=== PATIENT | female | born 1980 | race Two or more races ===

== ENCOUNTER 2022-02-06 18:13 | Inpatient (IN) | payer MEDICAID ==
[~2022-02-06] VITALS: Ht 154.9 cm; Wt 84.8 kg
--- NOTE | 2022-02-06 18:37 | NUR ---
PT IS IN ROOM #2B. DR OWENS EVALUATED THE PT.
[2022-02-06] MEDS ORDERED: ASPI81TA31 PO (18:57)
[2022-02-06] MEDS ORDERED: [UNRECOGNIZED DRUG - OTHER] (18:57)
[2022-02-06] MEDS ORDERED: LEVO25TA9 PO (18:57)
[2022-02-06] MEDS ORDERED: ACET160E36 PO (18:57)
[2022-02-06] MEDS ORDERED: ALBU18HF2 INH (18:57)
[2022-02-06] MEDS ORDERED: [UNRECOGNIZED DRUG - OTHER] PO (18:57)
[2022-02-06] MEDS ORDERED: HYDROCORTISONE CR TP (18:57)
[2022-02-06] MEDS ORDERED: LOSA25TA27 PO (18:57)
[2022-02-06] MEDS ORDERED: HUM10VIA SQ (18:57)
[2022-02-06] MEDS ORDERED: SILD50TA PO (18:57)
[2022-02-06] MEDS ORDERED: SELE1TAB PO (18:57)
[2022-02-06] MEDS ORDERED: LORA10TA7 PO (18:57)
[2022-02-06] MEDS ORDERED: BUME1TAB8 PO (18:57)
[2022-02-06] MEDS ORDERED: ACET-2154 PO (18:57)
[2022-02-06] MEDS ORDERED: EMTR1TAB13 PO (18:57)
[2022-02-06] MEDS ORDERED: TRAM50TA2 PO (18:57)
[2022-02-06] MEDS ORDERED: BUDE10.22 INH (18:57)
[2022-02-06] MEDS ORDERED: MACI10TA PO (18:57)
[2022-02-06] MEDS ORDERED: DOLU50TA PO (18:57)
[2022-02-06] MEDS ORDERED: VANCOMYCIN 1G/D5W 200 ML PIGGYBACK IV ONE (19:15)
[2022-02-06] MEDS ORDERED: HYDROMORPHONE 1 MG/1 ML DISP.SYRIN IV ONE (19:15)
[2022-02-06 19:42] LABS: HEMATOCRIT 44.7 % (31.2-41.9); MEAN CORPUSCULAR HEMOGLOBIN 28.7 uug (24.7-32.8); MEAN CORPUSCULAR VOLUME 86.4 fL (75.5-95.3); PLATELET COUNT (AUTO) 223 K/uL (179-408)
[2022-02-06 19:56] LABS: CARBON DIOXIDE 29 mmol/L (21-32); CHLORIDE 102 mmol/L (98-107); CREATININE 1.1 mg/dL (0.6-1.3); GLUCOSE 187 mg/dL (74-106); POTASSIUM 4.1 mmol/L (3.5-5.1); UREA NITROGEN, BLOOD 21 mg/dL (7-18)
[2022-02-06 20:02] LABS: ALANINE AMINOTRANSFERASE 21 U/L (14-59); ALKALINE PHOSPHATASE 146 U/L (50-136); ASPARTATE AMINOTRANSFERASE 22 U/L (15-37); BILIRUBIN,DIRECT 0.4 mg/dL (0.0-0.2); BILIRUBIN,TOTAL 1.1 mg/dL (0.2-1.0); TOTAL PROTEIN, SERUM 8.2 g/dL (6.4-8.2)
[2022-02-06] MEDS ORDERED: VANCOMYCIN IV 200 ML ONE (20:12)
[2022-02-06] MEDS ORDERED: HYDROMORPHONE 1 MG/1 ML DISP.SYRIN ONE (20:13)
[2022-02-06 20:25] LABS: CREATINE KINASE, TOTAL 62 U/L (26-192)
[2022-02-06 20:26] LABS: THYROID STIMULATING HORMONE 3.184 mIU/mL (0.358-3.740)
[2022-02-06] MEDS ORDERED: IV NORMAL SALINE 500 ML IV ONE (21:00)
[2022-02-06 21:47] LABS: ETHANOL < 3 MG/DL (0-0)
[2022-02-06] MEDS: BLOOD SUGAR DIAGNOSTIC 1 EACH STRIP VI SCH (22:45)
[2022-02-06] MEDS ORDERED: ONDANSETRON 4 MG/2 ML VIAL IV PRN (22:45)
[2022-02-06] MEDS ORDERED: ACETAMINOPHEN 325 MG TABLET PO PRN (22:45)
[2022-02-06] MEDS ORDERED: CEFEPIME HCL 1 G in IV DEXTROSE 5% 50 ML IV SCH (22:45)
[2022-02-06] MEDS ORDERED: DEXTROSE 50% 50 ML DISP.SYRIN IV PRN (22:45)
[2022-02-06] MEDS ORDERED: LABETALOL HCL 100 MG/20 ML VIAL IV PRN (22:45)
[2022-02-06] MEDS ORDERED: hydrALAZINE HCL 20 MG/1 ML VIAL IV PRN (22:45)
--- NOTE | 2022-02-07 00:25 | NUR ---
RECEIVED REPORT FROM ER NURSE LÓPEZ. PT IS ALERT AND ORIENTED X4 PT HAS BILATERAL OPEN SORE ON RT AND LT LOWER EXTREMITIES PT HAS IV FLUID OF NS AT KVO. PT C/O PAIN FROM LOWER LEGSS PT WAS GIVEN 2MG OF MORPHINE ORDERED. PT HAS A HISTORY OF SUBSTANCE ABUSE AND SMOKING. PT BLOOD SUGAR WAS TAKEN IT IS 157 PT AND WAS GIVEN 2 UNITS OF REGULAR INSULIN. NO SIGNS OF DIABETIC REACTION NOTED. PT GIVEN MEDICATION ORDERED NO SIGNS OF ADVERSE REACTION NOTED. WILL CONTINUE TO MONITOR FOR FALLS AND SAFETY ANY ORDER NEEDS PT MAY HAVE.
[2022-02-07 00:30] VITALS: BP 149/92
[2022-02-07] MEDS ORDERED: ALBUTEROL SULFATE 2.5 MG/3 ML NEBU NEB PRN (00:30)
[2022-02-07] MEDS: MORPHINE SULFATE 2 MG/1 ML DISP.SYRIN IV PRN ×4 (01:15→19:17)
[2022-02-07] MEDS: INSULIN REGULAR, HUMAN 300 UNITS/3 ML VIAL SQ PRN ×2 (01:46→20:26)
[2022-02-07] MEDS ORDERED: CEFEPIME HCL 1 G VIAL ONE (02:12)
[2022-02-07 04:51] VITALS: BP 134/102
[2022-02-07] MEDS ORDERED: LEVOTHYROXINE SODIUM 25 MCG TABLET PO SCH (07:00)
--- NOTE | 2022-02-07 07:30 | NUR ---
RECEIVED PATIENT IN BED WITH EYES CLOSED NO SS OF DISTRESS OR ACUTE PAIN SR ON MONITOR WILL CONTINUE TO MONITOR SUGAR AND ADMINISTER IV ANTIBIOTIC FOR CLARICE LEG CELLULITIS.
[2022-02-07] MEDS: BLOOD SUGAR DIAGNOSTIC 1 EACH STRIP VI SCH ×4 (07:51→20:27)
[2022-02-07] MEDS: INSULIN REGULAR, HUMAN 300 UNIT/3 ML VIAL SQ PRN ×3 (07:53→16:21)
[2022-02-07] MEDS ORDERED: VANCOMYCIN IV 1,250 MG in IV DEXTROSE 5% 250 ML IV ONE ×2 (08:00→09:00)
[2022-02-07] MEDS: CEFEPIME HCL 1 G in IV DEXTROSE 5% 50 ML IV SCH ×3 (08:24→23:05)
[2022-02-07] MEDS: SILDENAFIL 20 MG TABLET PO SCH ×2 (08:24→17:07)
[2022-02-07] MEDS: ASPIRIN 81 MG TAB.CHEW PO SCH (08:25)
[2022-02-07] MEDS: LORATADINE 10 MG TABLET PO SCH (08:25)
[2022-02-07] MEDS: LOSARTAN POTASSIUM 25 MG TABLET PO SCH (08:25)
[2022-02-07] MEDS: HEPARIN SODIUM,PORCINE 5,000 UNITS/ML VIAL SQ SCH ×2 (08:26→20:25)
[2022-02-07] MEDS ORDERED: BUMETANIDE 1 MG TABLET PO SCH (09:00)
[2022-02-07] MEDS ORDERED: TIVICAY PO SCH (09:00)
[2022-02-07] MEDS ORDERED: OPSUMIT PO SCH (09:00)
--- NOTE | 2022-02-07 10:00 | NUR ---
SEEN BY HOSPITALIST DISCUSSED PALN OF CARE, WILL CONTINUE IV ANTIBIOTICS ORDERED
--- NOTE | 2022-02-07 11:15 | NUR ---
NO ACUTE CHANGE FROM MORNING ASSESSMENTS, NO SS OF ACUTE PAIN OR RESPIRATORY DISTRESS. SEEN BY HOSPITALIST AND CHANGED STATUS TO M/S
[2022-02-07 11:35] LABS: HEMATOCRIT 42.9 % (31.2-41.9); MEAN CORPUSCULAR HEMOGLOBIN 28.7 uug (24.7-32.8); MEAN CORPUSCULAR VOLUME 87.8 fL (75.5-95.3); PLATELET COUNT (AUTO) 195 K/uL (179-408)
[2022-02-07 11:46] LABS: BILIRUBIN,TOTAL 1.3 mg/dL (0.2-1.0); PHOSPHOROUS 4.7 mg/dL (2.5-4.9); POTASSIUM 3.9 mmol/L (3.5-5.1); TOTAL PROTEIN, SERUM 7.6 g/dL (6.4-8.2)
[2022-02-07] MEDS: BUMETANIDE 1 MG TABLET PO SCH (11:49)
[2022-02-07] MEDS: LEVOTHYROXINE SODIUM 25 MCG TABLET PO SCH (11:49)
[2022-02-07 11:56] VITALS: BP 134/106
[2022-02-07 15:37] VITALS: BP 139/100
[2022-02-07 17:06] LABS: *AMPHETAMINE, URINE POSITIVE (NEGATIVE); *CANNABINOID, URINE NEGATIVE (NEGATIVE); *COCCAINE, URINE NEGATIVE (NEGATIVE); *OPIATE, URINE POSITIVE (NEGATIVE); *PHENCYCLIDINE SCREEN,URINE NEGATIVE (NEGATIVE)
--- NOTE | 2022-02-07 18:07 | NUR ---
continue with wound care, iv antibiotic and pain management. afebrile
[2022-02-07 20:00] VITALS: BP 140/88
[2022-02-07 23:11] VITALS: BP 116/88
[2022-02-08] MEDS: VANCOMYCIN IV 1,250 MG in IV DEXTROSE 5% 250 ML IV SCH ×2 (02:19→20:38)
[2022-02-08] MEDS: MORPHINE SULFATE 2 MG/1 ML DISP.SYRIN IV PRN ×3 (02:28→18:34)
[2022-02-08 04:38] VITALS: BP 129/90
--- NOTE | 2022-02-08 05:30 | NUR ---
Patient rested well in between care; pt in no acute distress; needs attended; c/o pain twice and both medicated with morphine with good results; continue to monitor; continue plan of care.
[2022-02-08] MEDS: LEVOTHYROXINE SODIUM 25 MCG TABLET PO SCH (06:47)
[2022-02-08] MEDS: BLOOD SUGAR DIAGNOSTIC 1 EACH STRIP VI SCH ×4 (06:47→20:49)
[2022-02-08 08:20] LABS: CREATININE 1.1 mg/dL (0.6-1.3); POTASSIUM 3.5 mmol/L (3.5-5.1)
[2022-02-08] MEDS: ASPIRIN 81 MG TAB.CHEW PO SCH (08:36)
[2022-02-08] MEDS: LORATADINE 10 MG TABLET PO SCH (08:36)
[2022-02-08] MEDS: HEPARIN SODIUM,PORCINE 5,000 UNITS/ML VIAL SQ SCH ×2 (08:36→20:37)
[2022-02-08] MEDS: BUMETANIDE 1 MG TABLET PO SCH (08:36)
[2022-02-08] MEDS: LOSARTAN POTASSIUM 25 MG TABLET PO SCH (08:42)
[2022-02-08] MEDS: CEFEPIME HCL 1 G in IV DEXTROSE 5% 50 ML IV SCH ×2 (08:43→15:02)
[2022-02-08] MEDS ORDERED: CLIN300C12 PO (08:50)
[2022-02-08] MEDS: SILDENAFIL 20 MG TABLET PO SCH ×2 (08:51→17:02)
[2022-02-08] MEDS: FLUTICASONE/VILANTEROL 1 EACH BLST.W.DEV INH SCH (09:01)
--- NOTE | 2022-02-08 10:06 | NUR ---
Social Work consult was requested [facility]. Patient is a 41-year-old female admitted to the hospital for cellulitis. Patient presents with anxious mood and congruent affect. Patient appears lethargic. Patient is alert and oriented X4. Patient states her primary personal insurance advisor is her daughter, Alma Hinds ([phone]) and the patient lives with her in an apartment at [address] [place] [address]. Patient states she is currently unemployed and receiving social security. Patient states she has a history of drug abuse. Patient states the last time she used drugs was a couple days ago and the toxicology report is positive for opiates and amphetamines. SW provided the patient resources for medication assisted treatment from [address] [address] ([phone]), [address] [address] ([phone]), [place] [address] ([phone]). Patient was appreciative of the resources and appears ambivalent about treatment. SW placed the resources in the patients chart. Patient denies a history of a psychiatric diagnosis. Patient denies suicidal or homicidal ideation. Patient states her plan for discharge is for her daughter, Alma ([phone]) to pick her up and take her home to [address] [place] [address].
[2022-02-08 11:00] VITALS: BP 135/74
[2022-02-08] MEDS: INSULIN REGULAR, HUMAN 300 UNITS/3 ML VIAL SQ PRN ×2 (11:23→20:54)
[2022-02-08] MEDS: INSULIN REGULAR, HUMAN 300 UNIT/3 ML VIAL SQ PRN (11:27)
--- NOTE | 2022-02-08 11:48 | NUR ---
WOUND CARE CONSULT: PT PRESENTS WITH BILATERAL LOWER EXTREMITY WOUNDS WITH PURULENT DRAINAGE, PRESENT ON ADMISSION. RECOMMEND DPM CONSULT. DR REVELES CALLED. RECOMMENDATIONS MADE FOR SKIN PROTECTION AND WOUND CARE. DISCUSSED WITH DR REVELES AND NURSING STAFF. MD IN AGREEMENT WITH PLAN OF CARE.
[2022-02-08] MEDS: SODIUM HYPOCHLORITE 0.125% (QUARTER STRENGTH) 473 ML BOTTLE TP SCH (13:21)
--- NOTE | 2022-02-08 14:58 | NUR ---
Dr Balta quick bianchi patient had frequent periods of of Afib. MD order to start Amio drip per protocol. Also, order to transfer to [facility]. will continue to monitor. Addendum: 02/08/22 at 1925 by July ELIDA HAHN DISREGARD NOTE. WRONG PATIENT
[2022-02-08 15:18] VITALS: BP 147/47
[2022-02-08] MEDS: NICOTINE 21 MG/24HR PATCH TD SCH (17:12)
--- NOTE | 2022-02-08 19:30 | NUR ---
RECEIVED PATIENT LYING IN BED. IN NO ACUTE DISTRESS. DENIES ANY SOB. NO COMPLAIN OF PAIN AT THIS TIME. IV SITE ON RIGHT AC INTACT AND PATENT. NSR ON TELE. NEEDS ASSESSED AND ATTENDED TO. SAFETY MEASURE INITIATED AND CALL LIGHT WITHIN REACHED.
[2022-02-08 20:00] VITALS: BP 147/116
--- NOTE | 2022-02-08 20:19 | NUR ---
Patient complaining of BLE pain, not relieve with Morphine 2mg IV given at 1834. informed Dr. Gaviria and order to increase Morphine to 4MG IV every 4 hours PRN. Order noted and will carry out.
[2022-02-08] MEDS: MORPHINE SULFATE 4 MG/1 ML DISP.SYRIN IV PRN (20:38)
[2022-02-09] VITALS: BP 108/73
[2022-02-09] MEDS: CEFEPIME HCL 1 G in IV DEXTROSE 5% 50 ML IV SCH ×2 (00:32→08:44)
[2022-02-09 04:00] VITALS: BP 127/85
--- NOTE | 2022-02-09 05:45 | NUR ---
PATIENT PAIN GOAL LEVEL REACHED UPON MORPHINE REASSESSMENT. SLEPT INTERMITTENTLY THROUGH THE NIGHT. IN NO ACUTE DISTRESS. DENIES ANY SOB. NO COMPLAIN OF PAIN AT THIS TIME. IV SITE ON RIGHT AC INTACT AND PATENT. EXHIBITED NO ADVERSE REACTIONS FROM ANTIBIOTICS. SINUS TACHY, HR 105/MINUTE ON TELE. SAFETY MEASURE INITIATED AND CALL LIGHT WITHIN REACHED.
[2022-02-09] MEDS: LEVOTHYROXINE SODIUM 25 MCG TABLET PO SCH (06:14)
[2022-02-09] MEDS: MORPHINE SULFATE 4 MG/1 ML DISP.SYRIN IV PRN (06:15)
[2022-02-09] MEDS: BLOOD SUGAR DIAGNOSTIC 1 EACH STRIP VI SCH ×2 (07:30→11:49)
[2022-02-09] MEDS: LORATADINE 10 MG TABLET PO SCH (08:44)
[2022-02-09] MEDS: FLUTICASONE/VILANTEROL 1 EACH BLST.W.DEV INH SCH (08:44)
[2022-02-09] MEDS: NICOTINE 21 MG/24HR PATCH TD SCH (08:44)
[2022-02-09] MEDS: SILDENAFIL 20 MG TABLET PO SCH (08:44)
[2022-02-09] MEDS: BUMETANIDE 1 MG TABLET PO SCH (08:51)
[2022-02-09] MEDS: ASPIRIN 81 MG TAB.CHEW PO SCH (08:51)
[2022-02-09] MEDS: LOSARTAN POTASSIUM 25 MG TABLET PO SCH (08:51)
[2022-02-09] MEDS: INSULIN REGULAR, HUMAN 300 UNIT/3 ML VIAL SQ PRN ×2 (08:54→11:52)
[2022-02-09] MEDS: HEPARIN SODIUM,PORCINE 5,000 UNITS/ML VIAL SQ SCH (08:56)
[2022-02-09] MEDS: SODIUM HYPOCHLORITE 0.125% (QUARTER STRENGTH) 473 ML BOTTLE TP SCH (10:30)
--- NOTE | 2022-02-09 11:00 | NUR ---
Patient dressing to bilateral lower legs changed. No s/s of infection. MD cleared for d/c from her perspective. Will notify attending.
[2022-02-09 11:53] VITALS: BP 116/73
--- NOTE | 2022-02-09 15:15 | NUR ---
Patient discharged to home with sister via private auto. No s/s of discomfort or distress. Dressing to bilateral lower legs c/d/i. IV and payroll technician removed. Tolerated well. Provided and reviewed discharge/follow up instructions with the patient. Explained to pear picker antibiotics and indicated pharmacy to go to. Verbalized understanding. All belongings sent with the patient.
[2022-02-09 15:22] VITALS: BP 129/77
== END 2022-02-09 15:15 | disposition home or self-care (01) | DRG 380 ==
LOC: ER 18:18 → TELE3 22:30
PROVIDERS: ADMIT Internal Medicine; ATTEND Internal Medicine
PROC: 0JBQ0ZZ Excision of Right Foot Subcutaneous Tissue and Fascia, Open Approach (ICD-10-PCS; principal; 2022-02-09)
PROC: 0JBP0ZZ Excision of Left Lower Leg Subcutaneous Tissue and Fascia, Open Approach (ICD-10-PCS; principal; 2022-02-09)
DX: E11.621 Type 2 diabetes mellitus with foot ulcer (principal); L97.829 Non-pressure chronic ulcer of other part of left lower leg with unspecified severity; L97.419 Non-pressure chronic ulcer of right heel and midfoot with unspecified severity; E11.40 Type 2 diabetes mellitus with diabetic neuropathy, unspecified; D75.1 Secondary polycythemia; L03.115 Cellulitis of right lower limb; L97.529 Non-pressure chronic ulcer of other part of left foot with unspecified severity; L03.116 Cellulitis of left lower limb; E11.65 Type 2 diabetes mellitus with hyperglycemia; I50.9 Heart failure, unspecified; I11.0 Hypertensive heart disease with heart failure; F15.10 Other stimulant abuse, uncomplicated; Z20.822 Contact with and (suspected) exposure to COVID-19; Z87.891 Personal history of nicotine dependence; Z79.82 Long term (current) use of aspirin; J44.9 Chronic obstructive pulmonary disease, unspecified; Z59.00 Homelessness unspecified; Z79.4 Long term (current) use of insulin; R00.0 Tachycardia, unspecified; R23.4 Changes in skin texture
CPT/HCPCS: 36415; 71045; 83605; 84100; 84443; 85025; 87040; 87070; 87077; 93005; A4663; A6209; G0378; G0480; J0360; J0692; J1170; J1644; J1815; J2270; J3370; J3490; J7040; J7050